=== PATIENT | female | born 1950 | race African-American/Black ===

== ENCOUNTER 2019-09-24 16:09 | Emergency (ER) | payer OTHER ==
[2019-09-24 16:42] VITALS: TEMP 97.9; BMI 28.1
[2019-09-24] MEDS ORDERED: SODIUM CHLORIDE 0.9% 500 ML INFUS.BAG IV ONE (17:23)
[2019-09-24] MEDS ORDERED: ACETAMINOPHEN 650 MG/20.3 ML ORAL SOLUTION (CUPS) PO ONE (17:24)
[2019-09-24] MEDS ORDERED: ACETAMINOPHEN 325 MG TABLET (FP) ONE (17:33)
--- NOTE | 2019-09-24 18:06 | PDOC ---
History of Present Illness - General Chief Complaint: Back Pain Stated Complaint: BACK PAIN Time Seen by Provider: 09/24/19 16:56 History Source: Patient Exam Limitations: No Limitations - History of Present Illness Initial Comments: 09/24/19 17:59 69-year-old female with history of hypertension, bladder prolapse, chronic UTIs presents complaining of feeling tired, bilateral flank pain radiating across lower back and mid upper back since 11 AM worsening throughout the day. Patient currently on Bactrim DS 1 tablet twice a day prescribed on September 22, 2019 for a UTI. Patient was scheduled for a cystoscopy 2 days ago which was not done given her UTI. Also reports urinary frequency, intermittent hematuria denies dysuria, urinary urgency, fever, chills, nausea, vomiting, chest pain. 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 As per patient she has had pulmonary function test, chest x-ray and CT chest which have all been normal. She is scheduled to follow-up with her urologist October 20, 2019. ROS: GENERAL/CONSTITUTIONAL: Positive weakness, no fever, chills, dizziness HEAD, EYES, EARS, NOSE AND THROAT: No changes in vision, No ear pain or discharge, No sore throat CARDIOVASCULAR: No chest pain RESPIRATORY: Positive shortness of breath (unchanged over the past year) or cough GASTROINTESTINAL: No pain, nausea, vomiting, diarrhea or constipation GENITOURINARY: Positive hematuria, urinary frequency MUSCULOSKELETAL: No neck or back pain SKIN: No rash NEUROLOGIC: No headache, vertigo, loss of consciousness, or loss of sensation PE: GENERAL: well-appearing, NAD HEAD: NCAT EYES: Pupils equal, round and reactive to light, sclera anicteric, conjunctiva clear ENT: pharynx: no erythema, no exudate, uvula midline NECK: supple CHEST: nontender RESP: clear, no w/r/r CARDIO: rrr, no m/g/r ABD: +BS, soft, nontender, non distended BACK: Bilateral CVAT, no midline spinal ttp EXTREMITIES: Normal range of motion, no edema NEUROLOGICAL: Normal speech SKIN: Warm, Dry Past History - Past Medical History Allergies/Adverse Reactions: Allergies Allergy/AdvReac Type Severity Reaction Status Date / Time No Known Allergies Allergy Verified 09/24/19 16:38 COPD: No GI Disorders: Yes (reoccuring uti) - Psycho Social/Smoking Cessation Hx Smoking History: Never smoked Have you smoked in the past 12 months: No Information on smoking cessation initiated: No Hx Alcohol Use: No Drug/Substance Use Hx: No *Physical Exam - Vital Signs Last Vital Signs Temp Pulse Resp BP Pulse Ox 97.9 F 64 18 142/74 100 09/24/19 16:39 09/24/19 16:39 09/24/19 16:39 09/24/19 16:39 09/24/19 16:39 ED Treatment Course - LABORATORY CBC & Chemistry Diagram: 09/24/19 18:00 09/24/19 18:00 - Medications Given in the ED: ED Medications Discontinued Medications Generic Name Dose Route Start Last Admin Trade Name Laron PRN Reason Stop Dose Admin Acetaminophen 650 mg 09/24/19 17:24 09/24/19 17:27 Tylenol Oral Solution - PO 09/24/19 17:25 650 mg ONCE ONE Administration Medical Decision Making - Medical Decision Making 09/24/19 18:06 69-year-old female with history of hypertension, chronic UTIs, prolapsed bladder currently on Bactrim DS 1 tablet twice a day since September 22, 2019 presents complaining of acute bilateral flank pain radiating to mid upper back since 11 AM worsening throughout the day. Labs including lactate UA, urine culture IV fluids P.o. acetaminophen 650 mg Reassess 09/24/19 20:08 UA positive bacteria greater than 5000, positive nitrites, positive leukocytes Normal creatinine and lactate Discussed results with patient Ceftriaxone 1 g IV Toradol 30 mg IV (patient declines morphine) Reassess 09/24/19 22:20 Patient's pain improved after IV fluids, IV Toradol, ceftriaxone 1 g IV Will discharge home with cephalexin prescription Advised patient to follow-up with urologist Return precautions discussed Discharge - Discharge Information Problems reviewed: Yes Clinical Impression/Diagnosis: Flank pain Condition: Stable Disposition: HOME - Admission No - Follow up/Referral Referrals: Lexa Ellis MD [Primary Care Provider] - - Patient Discharge Instructions Additional Instructions: Take cephalexin 500 mg every 8 hours for 7 days Remain hydrated Follow-up with your urologist within 2 to 3 days Note for work provided Turn to ED if fever, chills, nausea, vomiting, abdominal pain, worsening back pain or symptoms - Post Discharge Activity Work/Back to School Note: Back to Work
[2019-09-24 18:38] LABS: BASO % 1.9 % (0-2.0); EOS % 5.2 % (0-4.5); HEMATOCRIT 37.9 % (32.4-45.2); HEMOGLOBIN 12.4 GM/dL (10.7-15.3); MCH 27.1 pg (25.7-33.7); MCHC 32.8 g/dl (32.0-36.0); MEAN CELL VOLUME 82.7 fl (80-96); MONO % 8.3 % (3.8-10.2); NEUT % 33.6 % (42.8-82.8); PLATELET COUNT 301 K/MM3 (134-434); RBC 4.58 M/mm3 (3.60-5.2); RDW 16.2 % (11.6-15.6)
[2019-09-24 18:44] LABS: EPI CELLS 0.3 /HPF (0-5/HPF); HYALINE CASTS 3 /lpf (0-8); PH,URINE 6.5 (5.0-8.0); URINE APPEARANCE CLEAR; URINE BACTERIA 5429.8 /hpf (NEGATIVE); URINE BILIRUBIN NEGATIVE (NEGATIVE); URINE COLOR YELLOW; URINE GLUCOSE (UA) NEGATIVE (NEGATIVE); URINE KETONE NEGATIVE (NEGATIVE); URINE LEUK ESTERASE 2+ (NEGATIVE); URINE NITRITE POSITIVE (NEGATIVE); URINE PROTEIN NEGATIVE (NEGATIVE); URINE RBC 2 /hpf (0-4); URINE UROBILINOGEN 0.2 mg/dL (0.2-1.0); URINE WBC 42 /hpf (0-5)
[2019-09-24 19:03] LABS: ALBUMIN 4.3 g/dl (3.4-5.0); BILIRUBIN,TOTAL 0.3 mg/dL (0.2-1); BLOOD UREA NITROGEN 18.7 mg/dL (7-18); CALCIUM 9.2 mg/dL (8.5-10.1); CREATININE 1.2 mg/dL (0.55-1.3); POTASSIUM 3.5 mmol/L (3.5-5.1); TOT PROT 7.3 g/dl (6.4-8.2)
[2019-09-24] MEDS ORDERED: KETOROLAC TROMETHAMINE 30 MG/1 ML VIAL IVPUSH ONE (20:10)
[2019-09-24] MEDS ORDERED: KETOROLAC TROMETHAMINE 30 MG/1 ML VIAL ONE (20:16)
[2019-09-24] MEDS ORDERED: CEFTRIAXONE 1 GM/50 ML BAG ONE (20:20)
[2019-09-24 22:15] VITALS: BP 123/74; PULSE 65
== END 2019-09-24 23:45 | disposition home or self-care (01) ==
LOC: JER 16:09 → JERFT 16:09 → JER 23:45
PROC: 3E0333Z Introduction of Anti-inflammatory into Peripheral Vein, Percutaneous Approach (ICD-10-PCS; principal; 2019-09-24)
PROC: 3E03329 Introduction of Other Anti-infective into Peripheral Vein, Percutaneous Approach (ICD-10-PCS; 2019-09-24)
DX: R10.9 Unspecified abdominal pain (principal); Z87.440 Personal history of urinary (tract) infections; Z79.2 Long term (current) use of antibiotics
CPT/HCPCS: 36415; 80053; 81003; 83605; 85025; 87086; 87186; 99282-25

== ENCOUNTER 2019-10-23 13:59 | Emergency (ER) | payer OTHER ==
[2019-10-23 14:13] VITALS: BP 140/80; PULSE 86; TEMP 99; BMI 27.8
[2019-10-23] MEDS ORDERED: ACETAMINOPHEN 500 MG TABLET (FP) PO ONE (14:33)
--- NOTE | 2019-10-23 14:33 | PDOC ---
History of Present Illness - General Chief Complaint: Cold Symptoms Stated Complaint: PAIN Time Seen by Provider: 10/23/19 14:12 History Source: Patient Exam Limitations: No Limitations - History of Present Illness Initial Comments: 10/23/19 14:33 HISTORY OF PRESENT ILLNESS: 69-year-old woman with past medical history of hypertension who presents emergency department with 1 day of fevers, nasal drainage, sore throat and ear pain. Patient endorses having chills throughout the day today. Patient took Aleve this morning to help with the pain and chills but has not received any relief. Patient reports increased her household temperature to 85 degrees but still felt cold in the apartment. 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 Patient reports on 10/20 she was seen and evaluated by urology and had a cystoscopy performed in office. Patient was prescribed antibiotics at that time. No recent travel or sick contacts. PAST MEDICAL HISTORY: Denies past medical history SURGICAL HISTORY: Denies ALLERGIES: No known drug allergies REVIEW OF SYSTEMS General/Constitutional: +fever. Denies weakness, weight change. HEENT: Denies change in vision. Denies ear pain or discharge. +sore throat. Cardiovascular: Denies chest pain or shortness of breath. Respiratory: Moist productive cough. Denies wheezing, or hemoptysis. Gastrointestinal: Denies nausea, vomiting, diarrhea or constipation. Denies rectal bleeding. Genitourinary: See HPI Musculoskeletal: +myalgias. Denies neck or back pain. Skin and breasts: Denies rash or easy bruising. Neurologic: Denies headache, vertigo, loss of consciousness, or loss of sensation. Psychiatric: Denies depression or anxiety. Endocrine: Denies increased thirst. Denies abnormal weight change. Hematologic/Lymphatic: Denies anemia, easy bleeding, or history of blood clots. Allergic/Immunologic: Denies hives or skin allergy. Denies latex allergy. PHYSICAL EXAM General Appearance: Well-appearing, appropriately dressed. No apparent distress , no intoxication. HEENT: EOMI, PERRLA, normal voice, TMs retracted bilaterally. No conjunctival pallor. No photophobia, scleral icterus. Oropharynx erythematous without lesions or exudate. Cobblestoning noted in the posterior. No nasal discharge present. Neck: Supple. Trachea midline. No tenderness, rigidity, carotid bruit, stridor , or thyromegaly. Nontender anterior cervical lymphadenopathy present. Respiratory/Chest: Lungs CTAB. No shortness of breath, chest tenderness, respiratory distress, accessory muscle use. No crackles, rales, rhonchi, stridor , wheezing, dullness Cardiovascular: RRR. S1, S2. No JVD, murmur, bradycardia, tachycardia. Vascular Pulses: Dorsalis-Pedis (R): 2+, Dorsalis-Pedis (L): 2+ Gastrointestinal/Abdominal: Normal bowel sounds. Abdomen soft, non-distended. No tenderness or rebound tenderness. No organomegaly, pulsatile mass, guarding, hernia, hepatomegaly, splenomegaly. Musculoskeletal/Extremities: Normal inspection. FROM of all extremities, normal capillary refill. Pelvis Stable. No CVA tenderness. No tenderness to extremities, pedal edema, swelling, erythema or deformity. Integumentary: Appropriate color, dry, warm. 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 Fully oriented, alert. Appropriate mood/affect. Motor strength 5/5. No appreciable EOM palsy, facial droop or sensory deficit. 10/23/19 14:34 10/27/19 10:30 Past History - Past Medical History Allergies/Adverse Reactions: Allergies Allergy/AdvReac Type Severity Reaction Status Date / Time No Known Allergies Allergy Verified 10/23/19 14:10 Home Medications: Ambulatory Orders Cephalexin [Keflex] 500 mg PO TID #21 capsule 09/24/19 COPD: No GI Disorders: Yes (reoccuring uti) - Psycho Social/Smoking Cessation Hx Smoking History: Never smoked Have you smoked in the past 12 months: No Hx Alcohol Use: No Drug/Substance Use Hx: No *Physical Exam - Vital Signs Last Vital Signs Temp Pulse Resp BP Pulse Ox 99.0 F 86 16 140/80 97 10/23/19 14:10 10/23/19 14:10 10/23/19 14:10 10/23/19 14:10 10/23/19 14:10 Medical Decision Making - Medical Decision Making 10/23/19 14:36 A/P: 69-year-old woman 1 day of fevers, chills, body aches, nasal congestion, ear pain and lower back pain. 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 I cannot rule outs cystitis/pyelonephritis given patient's recent instrumentation. Urinalysis, urine culture, influenza testing Tylenol 1 g orally now Reassess Low threshold for continued testing if urinalysis is suggestive of acute process. 10/23/19 16:12 Influenza testing is negative. Urinalysis with elevated bacteria but negative nitrates, leuk esterase with 4 WBCs on high-power field. Patient likely with subjective fevers from upper respiratory infection. Discharge home to follow-up with urologist next week as well as her primary doctor. I discussed the physical exam findings, ancillary test results and final diagnoses with the patient. I answered all of the patient's questions. The patient was satisfied with the care received and felt comfortable with the discharge plan and treatment plan. The patient will call their primary care physician within 24 hours to arrange follow-up and will return to the Emergency Department with any new, persistent or worsening symptoms. Discharge - Discharge Information Problems reviewed: Yes Clinical Impression/Diagnosis: URI (upper respiratory infection) Qualifiers: URI type: unspecified viral URI Qualified Code(s): J06.9 - Acute upper respiratory infection, unspecified Condition: Stable Disposition: HOME - Admission No - Follow up/Referral Referrals: Lexa Ellis MD [Primary Care Provider] - - Patient Discharge Instructions Additional Instructions: Rest, drink lots of fluids: Teas, water, soups, Pedialyte Saltwater gargles Steamy showers/seem to face break up mucus Avoid contact with others until fevers and cough resolved Lots of handwashing and good hygiene Continue [id number] medications for symptomatic relief Tylenol or Motrin for fever and pain Followup with private physician in one to 2 days as needed Return to emergency department for worsened symptoms, fevers, dehydration - Post Discharge Activity Work/Back to School Note: Back to Work
[2019-10-23] MEDS ORDERED: ACETAMINOPHEN 500 MG TABLET (FP) ONE (14:36)
[2019-10-23 16:08] LABS: EPI CELLS 1.8 /HPF (0-5/HPF); HYALINE CASTS 1 /lpf (0-8); URINE APPEARANCE CLEAR; URINE BACTERIA 1764.4 /hpf (NEGATIVE); URINE BILIRUBIN NEGATIVE (NEGATIVE); URINE COLOR YELLOW; URINE GLUCOSE (UA) NEGATIVE (NEGATIVE); URINE KETONE NEGATIVE (NEGATIVE); URINE LEUK ESTERASE TRACE (NEGATIVE); URINE NITRITE NEGATIVE (NEGATIVE); URINE PROTEIN NEGATIVE (NEGATIVE); URINE RBC 1 /hpf (0-4); URINE UROBILINOGEN 0.2 mg/dL (0.2-1.0); URINE WBC 4 /hpf (0-5)
== END 2019-10-23 16:35 | disposition home or self-care (01) ==
LOC: JERFT 13:59
DX: J06.9 Acute upper respiratory infection, unspecified (principal); B97.89 Other viral agents as the cause of diseases classified elsewhere; I10 Essential (primary) hypertension; Z87.440 Personal history of urinary (tract) infections
CPT/HCPCS: 81003; 87086; 87186; 87804; 99282-25

== ENCOUNTER 2020-08-21 11:45 | Emergency (ER) | payer OTHER ==
[2020-08-21 12:04] VITALS: BP 132/72; PULSE 68; TEMP 98.9; BMI 27.4
[2020-08-21] MEDS ORDERED: KETOROLAC TROMETHAMINE 30 MG/1 ML VIAL IM ONE (12:48)
[2020-08-21] MEDS ORDERED: PHENAZOPYRIDINE HCL 100 MG TABLET (FP) PO ONE (12:48)
[2020-08-21] MEDS ORDERED: PHENAZOPYRIDINE HCL 100 MG TABLET (FP) ONE (13:03)
[2020-08-21] MEDS ORDERED: KETOROLAC TROMETHAMINE 30 MG/1 ML VIAL ONE (13:03)
[2020-08-21 13:26] LABS: PH,URINE 6.5 (5.0-8.0); URINE APPEARANCE CLEAR; URINE BILIRUBIN NEGATIVE (NEGATIVE); URINE COLOR YELLOW; URINE GLUCOSE (UA) NEGATIVE (NEGATIVE); URINE KETONE NEGATIVE (NEGATIVE); URINE LEUK ESTERASE NEGATIVE (NEGATIVE); URINE NITRITE NEGATIVE (NEGATIVE); URINE PROTEIN NEGATIVE (NEGATIVE); URINE UROBILINOGEN 0.2 mg/dL (0.2-1.0)
[2020-08-21 13:28] LABS: BASO % 1.3 % (0-2.0); HEMATOCRIT 34.2 % (32.4-45.2); HEMOGLOBIN 11.5 GM/dL (10.7-15.3); LYMPH % 44.4 % (8-40); MCH 28.2 pg (25.7-33.7); MCHC 33.5 g/dl (32.0-36.0); MEAN CELL VOLUME 84.1 fl (80-96); MONO % 8.2 % (3.8-10.2); NEUT % 41.1 % (42.8-82.8); PLATELET COUNT 261 K/MM3 (134-434); RBC 4.07 M/mm3 (3.60-5.2); RDW 16.2 % (11.6-15.6); WHITE BLOOD COUNT 5.8 K/mm3 (4.0-10.0)
[2020-08-21 13:42] LABS: POTASSIUM 3.4 mmol/L (3.5-5.1)
[2020-08-21 13:44] LABS: CALCIUM 9.4 mg/dL (8.5-10.1)
[2020-08-21 13:45] LABS: ALBUMIN 3.7 g/dl (3.4-5.0); BLOOD UREA NITROGEN 16.6 mg/dL (7-18)
[2020-08-21 13:48] LABS: CREATININE 0.9 mg/dL (0.55-1.3)
[2020-08-21 13:49] LABS: BILIRUBIN,TOTAL 0.5 mg/dL (0.2-1); TOT PROT 6.9 g/dl (6.4-8.2)
== END 2020-08-21 14:05 | disposition home or self-care (01) ==
LOC: JER 11:45
PROC: 3E0233Z Introduction of Anti-inflammatory into Muscle, Percutaneous Approach (ICD-10-PCS; principal; 2020-08-21)
DX: M54.5 Low back pain (principal)
CPT/HCPCS: 36415; 71046-TC-FY; 71101-TC-RT-FY; 80053; 81003; 85025; 87086; 99285-25

== ENCOUNTER 2021-08-18 06:56 | Emergency (ER) | payer OTHER ==
[2021-08-18 07:19] VITALS: BP 137/70; PULSE 60; TEMP 97; BMI 27.4
[2021-08-18] MEDS ORDERED: KETOROLAC TROMETHAMINE 30 MG/1 ML VIAL IM ONE (08:05)
[2021-08-18] MEDS ORDERED: KETOROLAC TROMETHAMINE 15 MG/ML VIAL ONE (08:22)
== END 2021-08-18 08:56 | disposition home or self-care (01) ==
LOC: JER 06:56
PROC: 3E0233Z Introduction of Anti-inflammatory into Muscle, Percutaneous Approach (ICD-10-PCS; principal; 2021-08-18)
DX: M25.561 Pain in right knee (principal)
CPT/HCPCS: 73560-TC-RT-FY; 99284-25